=== PATIENT | female | born 1950 | race Caucasian/White ===

== ENCOUNTER → 2021-07-15 11:38 | Outpatient (CLI) | payer MEDICARE, SELFPAY ==
--- NOTE | ~2021-07-15 | MM_ITS ---
EXAMINATION: MM screening [facility] BI w ruth HISTORY: Screening TECHNIQUE: Craniocaudal and mediolateral oblique 3-D tomosynthesis images were obtained and synthetic 2-D images were generated. CAD analysis was submitted and interpreted. COMPARISON: Comparison to multiple prior studies sequentially, with oldest reviewed study dated 09/2012. BREAST PARENCHYMAL COMPOSITION: Breast composed of scattered areas of fibroglandular density FINDINGS: There are developing focal asymmetries in the outer aspect of the left breast on CC view. T he right breast is stable without evidence for malignancy. IMPRESSION: 1. Developing left breast asymmetries. 2. Additional mammographic views and possible breast ultrasound are recommended. BI-RADS Category 0: Incomplete: Needs additional imaging evaluation. Reviewed, dictated and finalized at location A. 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 Developing left breast asymmetries. 2. Additional mammographic views and possible breast ultrasound are recommended . BI-RADS Category 0: Incomplete: Needs additional imaging evaluation.
--- NOTE | ~2021-07-15 | DEXA_ITS ---
Bone Density Report Name: JUAN BONNER Age: 70 Sex: Female Ethnicity: White Date of : 1950 Indication: osteopenia; postmenopausal Referring Provider: Annemarie Collado Study: Bone densitometry was performed. Exam Date: July 15, 2021 Accession number: [id number] Bone Density: Region BMD T-score Z-score Classification AP Spine (L1-L4) 0.885 -1.5 0.8 Osteopenia Femoral Neck (Left) 0.680 -1.5 0.4 Osteopenia Total Hip (Left) 0.812 -1.1 0.6 Osteopenia Femoral Neck (Right) 0.672 -1.6 0.3 Osteopenia Total Hip (Right) 0.754 -1.5 0.1 Osteopenia Total Hip Mean 0.783 -1.3 0.4 Osteopenia World Health Organization criteria for BMD impression classify patients as: Normal (T-score at or above -1.0), Osteopenia (T-score between -1.0 and -2.5), or Osteoporosis (T-score at or below -2.5). 10-year Fracture Risk(1): Major Osteoporotic Fracture 10.0% Hip Fracture 1.8% Reported Risk Factors: [place] (), Neck BMD=0.672, BMI=22.3 (1) FRAX(R) Version 3.08. Fracture probability calculated for an untreated patient. Fracture probability may be lower if the patient has received treatment. Previous Exams: Region Exam Age BMD T-score BMD Change BMD Change Date g/cm2 vs Baseline vs Previous AP Spine(L1-L4) 07/15/2021 70 0.885 -1.5 0.006 0.009 12/22/2014 64 0.876 -1.6 -0.003 0.018 07/05/2012 61 0.858 -1.7 -0.021 -0.002 07/01/2010 59 0.860 -1.7 -0.019 -0.019 08/30/2004 53 0.879 -1.5 Total Hip(Left) 07/15/2021 70 0.812 -1.1 0.015 0.021 12/22/2014 64 0.791 -1.2 -0.006 0.005 07/05/2012 61 0.786 -1.3 -0.011 -0.016 07/01/2010 59 0.802 -1.2 0.005 0.005 08/30/2004 53 0.797 -1.2 Total Hip(Right) 07/15/2021 70 0.754 -1.5 -0.055* -0.015 12/22/2014 64 0.769 -1.4 -0.040* 0.012 07/05/2012 61 0.757 -1.5 -0.053* -0.009 07/01/2010 59 0.765 -1.4 -0.044* -0.044* 08/30/2004 53 0.810 -1.1 *Denotes significance at 95% confidence level, LSC for AP Spine = 0.022 g/cm2, LSC for Total Hip = 0.027 g/cm2 Clinical Information Provided by Patient: Has used the following medications: Vitamin D Patient maximum height was 68 Menopause Age: 51 Drinks caffeinated beverages Onset of menses at age 12 Number of children 2
== END ==
PROVIDERS: Visit Provider Advanced Practice Midwife
DX: Z12.31 Encounter for screening mammogram for malignant neoplasm of breast (principal); M81.0 Age-related osteoporosis without current pathological fracture; R92.8 Other abnormal and inconclusive findings on diagnostic imaging of breast; M85.88 Other specified disorders of bone density and structure, other site; M85.852 Other specified disorders of bone density and structure, left thigh; M85.851 Other specified disorders of bone density and structure, right thigh
CPT/HCPCS: 77063; 77067; 77080

== ENCOUNTER → 2021-07-31 08:38 | Outpatient (CLI) | payer MEDICARE, SELFPAY ==
--- NOTE | ~2021-07-31 | MMUS_ITS ---
EXAMINATION: MM diagnostic jessee LT w ruth, US breast LT limited HISTORY: Developing left breast asymmetries reported on 09/12/2021 screening mammogram TECHNIQUE: Additional 3-D tomosynthesis images of the left breast were performed and synthetic 2-D im ages were generated. CAD analysis was submitted and interpreted. High resolution limited upper outer and lower-outer quadrant left breast ultrasound was performed. COMPARISON: April 14, 2022, December 21, 2018, November 23, 2017 bilateral screening mammogram examinations FINDINGS: MAMMOGRAPHIC FINDINGS: No interval suspicious mass, architectural distortion, malignant calcification, skin thickening or re traction or significant new or developing density since 2018 is evident. Occasional benign calcificat ions. ULTRASOUND: 1:00 4 cm from nipple: Parallel circumscribed hypoechoic 4.5 x 2.5 x 3.4 mm hypoechoic area without i nternal vascularity or posterior shadowing 4:00 4 cm from nipple: 2.6 mm circular hypoechoic area without internal vascularity or posterior shad owing IMPRESSION: 1. Probably benign findings 2. 6 month targeted 1:00 and 4:00 left breast ultrasound follow-up is recommended to document stabili ty BI-RADS category 3, probably benign findings. Reviewed, dictated and finalized at location A. LIGHTER IMPRESSION: 1. Probably benign findings 2. 6 month targeted 1:00 and 4:00 left breast ultrasound follow-up is recommend ed to document stability BI-RADS category 3, probably benign findings.
== END ==
PROVIDERS: PCP Internal Medicine; Visit Provider Advanced Practice Midwife
DX: R92.8 Other abnormal and inconclusive findings on diagnostic imaging of breast (principal)
CPT/HCPCS: 76642; 77061; 77065; G0279

== ENCOUNTER 2022-06-26 00:30 | Day surgery (SDC) | payer MEDICARE, SELFPAY ==
[2022-06-12 13:13] VITALS: BMI 22.4
--- NOTE | 2022-06-25 10:12 | PM.HPGS ---
History of Present Illness History of Present Illness Consent: Risks, benefits, and alternatives have been discussed and questions answered. Patient agrees to proceed with procedure. Chief complaint: Neoplasm Screening Narrative: Marcelle Jay is a 71 year old female Referred for colon cancer screening. Her last colonoscopy was 10 years ago Review of Systems Review of Systems: All systems reviewed & are unremarkable except as noted in HPI and below PMFSH Past Medical History Medical History Acoustic neuroma Deafness in left ear Vitamin D deficiency Family History Family History Mother Hypertension Cerebrovascular accident Social History Social History Smoking status: Never smoker Second hand tobacco smoke exposure: No Alcohol intake: current Drinks per week: 5 Alcohol use details: wine Substance use: never Substance use type: does not use Lack of Transportation: No Lack of Food: Never True Current Housing: I Have Housing Concerned About Future Housing: No Difficulty Paying Gas/Electric Bills: No Difficulty Paying for Meds: No Currently Unemployed: No Education: High School Diploma/GED Difficulty w/ Childcare or Family Care: No Living arrangements: with family Spiritual care concerns: No Meds Home Medications and Allergies Home Medications Medication Instructions Recorded Confirmed Type cholecalciferol (vitamin D3) 25 25 mcg PO DAILY 03/14/20 06/26/22 History mcg (1,000 unit) capsule multivitamin with minerals-folic 1 tablet PO DAILY 06/12/22 06/26/22 History acid 0.4 mg tablet Allergies Allergy/AdvReac Type Severity Reaction Status Date / Time No Known Allergies Allergy Verified 06/26/22 06:26 Exam Const: General: alert Orientation/consciousness: patient oriented x3 Resp: Auscultation: clear to auscultation bilaterally Cardio: Rhythm: regular rhythm GI: GI Palp: Yes Soft to palpation and No Tenderness to palpation present (GI) Neuro: General: patient oriented x3 Assessment and Plan Assessment and plan (1) Screening for colon cancer: Code(s): Z12.11 - Encounter for screening for malignant neoplasm of colon Status: Acute Assessment and Plan: Colonoscopy with possible biopsy or polypectomy or cautery or injection of substances.
[2022-06-26 06:18] VITALS: BP 122/71; PULSE 72; RESP 18; TEMP 36.2; O2SAT 100; BMI 22.4
[2022-06-26] MEDS: LACTATED RINGERS 1,000 ML 150 ML IV CONT (06:41)
--- NOTE | 2022-06-26 07:18 | WPDANESEPPF ---
Anes - Initial Pre Proc Eval Procedure: Operation Date: 06/26/22 07:30 Proposed Procedures p Screening Colonoscopy - Lan Soni MD Date/Time: 06/26/22 07:18 Surgeon: Lan Soni MD Pre Op Diagnosis: Neoplasm Screening Patient Data Age: 71 Gender: F Height: 1.7 m Weight: 64.9 kg Last Vital Signs Temp 97.2 F L 06/26/22 06:18 Pulse 72 06/26/22 06:18 Resp 18 06/26/22 06:18 BP 122/71 06/26/22 06:18 Pulse Ox 100 06/26/22 06:18 O2 Del Method Room Air 06/26/22 06:18 Allergies Allergy/AdvReac Type Severity Reaction Status Date / Time No Known Allergies Allergy Verified 06/26/22 06:26 Home Medications Medication Instructions Recorded Confirmed Type cholecalciferol (vitamin D3) 25 25 mcg PO DAILY 03/14/20 06/26/22 History mcg (1,000 unit) capsule multivitamin with minerals-folic 1 tablet PO DAILY 06/12/22 06/26/22 History acid 0.4 mg tablet Patient hx anesthesia problems: none Family hx anesthesia problems: none Results Review: All pre-operative results and documents have been reviewed as part of the pre-operative evaluation. [facility], LAT[facility] Past Medical History Medical History Acoustic neuroma Deafness in left ear Vitamin D deficiency Family History Family History Mother Hypertension Cerebrovascular accident Social History Social History Smoking status: Never smoker Second hand tobacco smoke exposure: No Alcohol intake: current Drinks per week: 5 Alcohol use details: wine Substance use: never Substance use type: does not use Lack of Transportation: No Lack of Food: Never True Current Housing: I Have Housing Concerned About Future Housing: No Difficulty Paying Gas/Electric Bills: No Difficulty Paying for Meds: No Currently Unemployed: No Education: High School Diploma/GED Difficulty w/ Childcare or Family Care: No Living arrangements: with family Spiritual care concerns: No Anes - Eval Final PreProcedure Day of Procedure 06/26/22 07:18 Patient weight: normal Heart: regular rate and rhythm Lungs: clear to auscultation Airway: Mallampati scale class II Neurological: alert and oriented Last oral intake: >/= 8 hours ASA classification: I Emergent: no Anesthetic plan: proceed Anesthesia type and monitoring: general GIVS and standard monitoring Results Review: All pre-operative results and documents have been reviewed as part of the pre-operative evaluation. Informed Consent: The patient's anesthetic plan and its attendant risks and benefits were discussed with the patient/family/POA. Questions were solicited and answers provided to the satisfaction of the patient/family/POA.
[2022-06-26 07:39] VITALS: BP 93/55; PULSE 60; RESP 15; O2SAT 100
[2022-06-26 07:49] VITALS: BP 108/50; PULSE 60; RESP 20; O2SAT 100
[2022-06-26 07:58] VITALS: BP 119/64; PULSE 63; RESP 16; O2SAT 97
== END 2022-06-26 08:18 | disposition home or self-care (01) ==
PROVIDERS: PCP Internal Medicine; Visit Provider Internal Medicine Gastroenterology
PROC: 0DJD8ZZ Inspection of Lower Intestinal Tract, Via Natural or Artificial Opening Endoscopic (ICD-10-PCS; CPT 45378; principal; 2022-06-26 07:30)
DX: Z12.11 Encounter for screening for malignant neoplasm of colon (principal); K57.30 Diverticulosis of large intestine without perforation or abscess without bleeding; K63.89 Other specified diseases of intestine; E55.9 Vitamin D deficiency, unspecified; Z53.8 Procedure and treatment not carried out for other reasons
CPT/HCPCS: G0121; J2704; J7120

== ENCOUNTER → 2022-10-06 14:04 | Outpatient (CLI) | payer MEDICARE, SELFPAY ==
--- NOTE | ~2022-10-06 | MM_ITS ---
EXAMINATION: MM screening [facility] BI w ruth HISTORY: Screening mammogram TECHNIQUE: Craniocaudal and mediolateral oblique 3-D tomosynthesis images were obtained and synthetic 2-D images were generated. CAD analysis was submitted and interpreted. COMPARISON: 07/31/2021, 07/15/2021, 12/21/2018 BREAST PARENCHYMAL COMPOSITION: There are scattered areas of fibroglandular density. FINDINGS: No suspicious mass, calcification, or architectural distortion are identified in either alyse ast to suggest malignancy. There has been no suspicious interval change. IMPRESSION: 1. No mammographic evidence of malignancy. 2. Recommend routine screening mammography in one year. BI-RADS Category 1: Negative Reviewed, dictated and finalized at location A.
== END ==
PROVIDERS: PCP Advanced Practice Midwife; Visit Provider Advanced Practice Midwife
DX: Z12.31 Encounter for screening mammogram for malignant neoplasm of breast (principal)
CPT/HCPCS: 77063; 77067

== ENCOUNTER 2023-04-17 08:44 | Emergency (ER) | payer MEDICARE, SELFPAY ==
[2023-04-17 08:57] VITALS: BP 143/85; PULSE 83; RESP 16; TEMP 37.1; O2SAT 100
--- NOTE | 2023-04-17 09:33 | ED.EAR ---
HPI - Ear Problem General Chief complaint: Ear Stated complaint: EAR CLOGGED/DIZZY Source: patient Mode of arrival: ambulatory Limitations: no limitations History of Present Illness HPI Narrative: 72 y/o female with hx acoustic neuroma (deaf left ear) presented for c/o right ear fullness, popping and decreased hearing. States symptoms started after using Debrox as advised by pcp for excess cerumen. Denies ear pain, tinnitus, dizziness, ear drainage, n/v/d/f/c. Patient occasionally cleans her ears with hydrogen peroxide and has history of cerumen impaction. Complaint: ear pain Related Data Home Medications Medication Instructions Recorded Confirmed multivitamin with minerals-folic 1 tablet PO DAILY 06/12/22 04/17/23 acid 0.4 mg tablet cholecalciferol (vitamin D3) 25 50 mcg PO DAILY 04/14/23 04/17/23 mcg (1,000 unit) capsule Allergies Allergy/AdvReac Type Severity Reaction Status Date / Time No Known Allergies Allergy Verified 04/17/23 08:56 Review of Systems Review of Systems: CONSTITUTIONAL: Denies malaise, chills, or fever. EYES: Denies visual changes, redness, or discharge. ENT: Denies rhinorrhea, congestion, sinus pain, and sore throat. Reports ear popping CARDIOVASCULAR: Denies chest pain, palpitations, or edema. RESPIRATORY: Denies cough or dyspnea. GASTROINTESTINAL: Denies abdominal pain, nausea, vomiting, diarrhea SKIN: Denies rash or itching. MUSCULOSKELETAL: Denies myalgia. NEUROLOGIC: Denies headache. All systems reviewed & are unremarkable except as noted in HPI and below PMFSH Past Medical History Medical History Acoustic neuroma Deafness in left ear Vitamin D deficiency Family History Family History Mother Hypertension Cerebrovascular accident Social History Social History Smoking status: Never smoker Second hand tobacco smoke exposure: No Alcohol intake: current Drinks per week: 5 Alcohol use details: wine Substance use: never Substance use type: does not use Lack of Transportation: No Lack of Food: Never True Current Housing: I Have Housing Concerned About Future Housing: No Difficulty Paying Gas/Electric Bills: No Difficulty Paying for Meds: No Currently Unemployed: No Education: High School Diploma/GED Difficulty w/ Childcare or Family Care: No Living arrangements: with family Spiritual care concerns: No Comments At time of signature, agree with nursing past medical, surgical, social and family history. There is no relevant family history pertinent to the presenting complaint Exam Narrative: GENERAL: Well-appearing, and in no acute distress. HEAD: Normocephalic EYES: PERRLA, conjunctivae clear ENT: Nares clear. Mucous membranes moist. Bilateral TMs unable to visualize due to excess cerumen. no tragal tenderness. Oropharynx not erythematous without lesions. NECK: Supple. No lymphadenopathy CHEST: Clear to auscultation, breath sounds equal. HEART: Regular rate and rhythm. No murmur heard. SKIN: Warm, dry, no rash. NEURO: Alert and oriented x3. PSYCH: Normal mood and affect Course Course Emergency Course: Patient is aware of diagnosis, understands and agrees to treatment plan. Anticipatory guidance given. Patient agrees to follow-up as directed and is aware of reasons to seek care at the emergency department. Portions of this record may have been created with voice recognition software Level of Care: Express Care Visit Vital Signs Vital signs: Vital Signs Temperature 98.7 F 04/17/23 08:57 Pulse Rate 83 04/17/23 08:57 Respiratory Rate 16 04/17/23 08:57 Blood Pressure 143/85 H 04/17/23 08:57 Pulse Oximetry 100 04/17/23 08:57 Temperature 98.7 F 04/17/23 08:57 Pulse Rate 83 04/17/23 08:57 Respiratory Rate 16 04/17/23 08:5
[2023-04-17] MEDS: HYDROGEN PEROXIDE 3% SOLN(*SP) 473 ML BOTTLE 100 ML IRRIGATION (09:36)
== END 2023-04-17 09:37 | disposition home or self-care (01) ==
PROVIDERS: Emergency Provider Nurse Practitioner Family; PCP Nurse Practitioner
DX: H61.23 Impacted cerumen, bilateral (principal); Z86.018 Personal history of other benign neoplasm; H91.92 Unspecified hearing loss, left ear; E55.9 Vitamin D deficiency, unspecified
CPT/HCPCS: 69210; 99212; G0463

== ENCOUNTER 2023-12-09 13:15 | Outpatient (CLI) | payer MEDICARE, SELFPAY ==
--- NOTE | ~2023-12-09 | MM_ITS ---
EXAMINATION: MM screening [facility] BI w ruth HISTORY: Screening mammogram TECHNIQUE: Craniocaudal and mediolateral oblique 3-D tomosynthesis images were obtained and synthetic 2-D images were generated. CAD analysis was submitted and interpreted. COMPARISON: 10/06/2022, 07/31/2021, 07/15/2021 BREAST PARENCHYMAL COMPOSITION:Not Dense. There are scattered areas of fibroglandular density. FINDINGS: No suspicious mass, calcification, or architectural distortion are identified in either alyse ast to suggest malignancy. There has been no suspicious interval change. IMPRESSION: No mammographic evidence of malignancy. Recommend routine screening mammography in one year. BI-RADS Category 1: Negative Reviewed, dictated and finalized at location .
== END 2023-12-09 13:16 ==
PROVIDERS: PCP Nurse Practitioner; Visit Provider Nurse Practitioner
DX: Z12.31 Encounter for screening mammogram for malignant neoplasm of breast (principal)
CPT/HCPCS: 77063; 77067

== ENCOUNTER 2025-05-17 15:10 | Outpatient (CLI) | payer MEDICARE, SELFPAY ==
--- NOTE | ~2025-05-17 | DEXA_ITS ---
Bone Density Report Name: JUAN BONNER Age: 74 Sex: Female Ethnicity: White Date of : 1950 Indication: osteopenia; Referring Provider: JO CONTE Study: Bone densitometry was performed. Exam Date: May 17, 2025 Accession number: [id number] Bone Density: Region BMD T-score Z-score Classification AP Spine(L1-L4) 0.910 -1.2 1.2 Osteopenia Femoral Neck (Left) 0.690 -1.4 0.7 Osteopenia Total Hip (Left) 0.739 -1.7 0.2 Osteopenia Femoral Neck (Right) 0.637 -1.9 0.2 Osteopenia Total Hip (Right) 0.681 -2.1 -0.3 Osteopenia Total Hip Mean 0.710 -1.9 -0.1 Osteopenia World Health Organization criteria for BMD impression classify patients as: Normal (T-score at or above -1.0), Osteopenia (T-score between -1.0 and -2.5), or Osteoporosis (T-score at or below -2.5). 10-year Fracture Risk(1): Major Osteoporotic Fracture 12% Hip Fracture 3.1% Reported Risk Factors: [place] (), Neck BMD=0.637, BMI=22.0 (1) FRAX(R) Version 3.08. Fracture probability calculated for an untreated patient. Fracture probability may be lower if the patient has received treatment. Previous Exams: -- Region Exam Age BMD T-score BMD Change BMD Change Date g/cm2 vs Baseline vs Previous -- AP Spine (L1-L4) 05/17/2025 74 0.910 -1.2 3.5%* 2.8%* 07/15/2021 70 0.885 -1.5 0.7% 1.0% 12/22/2014 64 0.876 -1.6 -0.4% 2.1% 07/05/2012 61 0.858 -1.7 -2.4% -0.2% 07/01/2010 59 0.860 -1.7 -2.2% -2.2% 08/30/2004 53 0.879 -1.5 Total Hip(Left) 05/17/2025 74 0.739 -1.7 -7.2%* -9.0%* 07/15/2021 70 0.812 -1.1 1.9% 2.7% 12/22/2014 64 0.791 -1.2 -0.7% 0.7% 07/05/2012 61 0.786 -1.3 -1.4% -2.0% 07/01/2010 59 0.802 -1.2 0.6% 0.6% 08/30/2004 53 0.797 -1.2 Total Hip(Right) 05/17/2025 74 0.681 -2.1 -15.9%* -9.7%* 07/15/2021 70 0.754 -1.5 -6.8%* -1.9% 12/22/2014 64 0.769 -1.4 -5.0%* 1.6% 07/05/2012 61 0.757 -1.5 -6.5%* -1.1% 07/01/2010 59 0.765 -1.4 -5.4%* -5.4%* 08/30/2004 53 0.810 -1.1 -- *Denotes significance at 95% confidence level, LSC for AP Spine = 0.022 g/cm2, LSC for Total Hip = 0.027 g/cm2 Clinical Information Provided by Patient: Patient maximum height was 68 Menopause Age: 51 Drinks caffeinated beverages Onset of menses at age 11 Number of children 2 Impression: The patient has low bone mass, based on the Right Total Hip T-score. The patient has an estimated ten-year risk of hip fracture of 3.1% and an estimated ten-year risk of major fracture of 12%, based on the WHO FRAX algorithm. The BMD for the Total Hip(Left) decreased, changing by -9.0% since the last DXA exam. The BMD for the Total Hip(Right) decreased, changing by -9.7% since the last DXA exam. Discussion: BONE DENSITY IS LOW AT ONE OR MORE SKELETAL SITES. THE PATIENT'S BMD AND CLINICAL RISK FACTORS CONTRIBUTE TO THIS PATIENT'S INCREASED RISK OF FRACTURE. This patient's lowest T-score is low at one or more skeletal sites. It meets the World Health Organization's (WHO) criteria for ?low bone mass? (T-score between -1.0 and -2.5). The patient's 10-year risk of hip fracture as calculated by FRAX exceeds the threshold where pharmacological therapy is recommended by the National Osteoporosis Foundation (NOF). However, all treatment decisions require clinical judgment and consideration of individual patient factors, including patient preferences, comorbidities, previous drug use, risk factors not captured in the FRAX model (e.g., frailty, falls, vitamin D deficiency, increased bone turnover, interval significant decline in bone density) and possible under or overestimation of fracture risk by FRAX. The patient should follow a healthful lifestyle (good nutrition with adequate calcium and vitamin D, and appropriate weight-bearing exercise). Follow-Up: Consider a repeat BMD and Vertebral Fracture Assessment (VFA) exam in 2 years or sooner if medically necessary, to reassess this patient's status. Reported by: MAYE on 05/17/2025 3:26:00 PM. Reviewed, dictated and finalized at location A.
== END 2025-05-17 15:11 | disposition home or self-care (01) ==
LOC: MICIMG 15:11
PROVIDERS: PCP Family Medicine; Visit Provider Family Medicine
DX: Z78.0 Asymptomatic menopausal state (principal); M85.852 Other specified disorders of bone density and structure, left thigh; M85.851 Other specified disorders of bone density and structure, right thigh; M85.88 Other specified disorders of bone density and structure, other site
CPT/HCPCS: 77080